=== PATIENT | female | born 1965 | race Caucasian/White ===

== ENCOUNTER 2017-09-17 14:26 | Emergency (ER) | payer OTHER ==
[~2017-09-17] VITALS: Ht 165.1 cm; Wt 80.3 kg
[~2017-09-17 14:26] MED LIST: AMLO10TA PO; BENA10TA25 PO; OMEP40EC1 PO; SYN.05 PO
[2017-09-17 14:59] VITALS: BP 130/71
--- NOTE | 2017-09-17 15:03 | NUR ---
PT AMBULATED TO BED 6.
--- NOTE | 2017-09-17 15:09 | NUR ---
51F BIB FAMILY C/O POSTERIOR HEADACHE, PRESSURE, RADIATES TO TOP OF HEAD, 8/10 X YESTERDAY; PT STATES NO TRAUMA OR INJURY TO SITE AT THIS TIME; PT STATES NO BLURRY VISION OR VISION CHANGES AT THIS TIME; PT AA&OX4, PERRLA, STATES HAS NAUSEA, BUT STATES NO VOMITING OR DIARRHEA AT THIS TIME; ABDOMEN SOFT, NON-TENDER, ACTIVE BOWEL SOUNDS X 4 QUADRANTS; BL LUNG SOUNDS CLEAR, RR EVEN/UNLABORED, SKIN IS WARM/DRY/INTACT AT THIS TIME; STEADY GAIT; PT RESTING IN BED WITH HOB ELEVATED AND IN LOWEST POSITION; POSITIONED FOR COMFORT; ER MD MADE AWARE OF STATUS. WILL CONTINUE TO MONITOR.
[2017-09-17] MEDS: ACETAMINOPHEN 325 MG TAB PO ONE (15:49)
[2017-09-17] MEDS: ONDANSETRON 4 MG ODT PO ONE (15:49)
[2017-09-17 16:40] VITALS: BP 127/73
--- NOTE | 2017-09-17 16:40 | NUR ---
Patient discharged with v/s stable. Written and verbal after care instructions given and explained. Patient alert, oriented and verbalized understanding of instructions. Ambulatory with steady gait. All questions addressed prior to discharge. ID band removed. Patient advised to follow up with PMD. Rx of ZOFRAN ODT given. Patient educated on indication of medication including possible reaction and side effects. Opportunity to ask questions provided and answered.
== END 2017-09-17 16:40 | disposition home or self-care (01) ==
LOC: MED 14:26
DX: R51 Headache (principal); I10 Essential (primary) hypertension; E78.5 Hyperlipidemia, unspecified
CPT/HCPCS: 93005; 99283; S0119

== ENCOUNTER 2018-11-03 23:07 | Emergency (ER) | payer OTHER ==
[~2018-11-03] VITALS: Ht 165.1 cm; Wt 79.4 kg
[2018-11-03 23:12] VITALS: BP 135/77
--- NOTE | 2018-11-03 23:12 | NUR ---
TO BED # 3 AMBULATORY, REPORT GIVEN TO SHAILA ESTRADA
--- NOTE | 2018-11-03 23:15 | NUR ---
ASSUMED CARE OF PT AT THIS TIME. C/O RIGHT EYE REDNESS AND PAIN X 2 DAYS. AAOX4 WITH EVEN AND STEADY GAIT; PATIENT STATES PAIN OF 5/10; VSS; PATIENT POSITIONED FOR COMFORT; HOB ELEVATED; BEDRAILS UP X2; BED DOWN. ER MD MADE AWARE OF PT STATUS. WILL CONTINUE TO MONITOR.
--- NOTE | 2018-11-03 23:16 | NUR ---
PT TAKEN TO BED 4
--- NOTE | 2018-11-03 23:19 | NUR ---
Dr. Pepe evaluating patient at bedside.
[2018-11-03 23:25] VITALS: BP 135/77
--- NOTE | 2018-11-03 23:25 | NUR ---
Patient discharged with v/s stable. Written and verbal after care instructions given and explained. Patient verbalized understanding. Ambulatory with steady gait. All questions addressed prior to discharge. Advised to follow up with PMD.
== END 2018-11-03 23:25 | disposition home or self-care (01) ==
LOC: MED 23:07
DX: H11.31 Conjunctival hemorrhage, right eye (principal); I10 Essential (primary) hypertension; E78.5 Hyperlipidemia, unspecified; E07.9 Disorder of thyroid, unspecified; Z79.899 Other long term (current) drug therapy
CPT/HCPCS: 99282

== ENCOUNTER 2019-06-23 01:13 | Emergency (ER) | payer OTHER ==
[~2019-06-23] VITALS: Ht 165.1 cm; Wt 83.9 kg
[~2019-06-23 01:13] MED LIST changes: -OMEP40EC1 PO; +OMEP40EC24 PO
[2019-06-23 01:15] VITALS: BP 117/83
--- NOTE | 2019-06-23 01:15 | NUR ---
PT AMBULATED TO BED 04
--- NOTE | 2019-06-23 01:20 | NUR ---
Note undone in EDM - 06/23/19 at 0214 by [email or web address] PT CAME TO ER C/O GENERALIZED BODY ACHES. PT STATES "I ATE TACOS ON 06/22/19 AT 0200 AND HAVE NOT FELT GOOD SINCE." PT HAS TEMP OF 101.6 TEMPORAL. PT TOOK IBUPROFEN 800MG, WITHOUT ANY RELIEF. PT C/O OF GENERALIZED BODY ACHES. PAIN LEVEL 8/10 BODY PAIN WITH NAUSEA. PT IS HOT TO TOUCH AND TACHYCARDIC. DENIES COUGH OR RUNNY NOSE. DENIES ANY VOMITING/DIARRHEA. NKA. MED HX: HTN AND HYPOTHYROIDISM. SAFETY MEASURES IN PLACE. ERMD AT BEDSIDE.
--- NOTE | 2019-06-23 01:20 | NUR ---
PT CAME TO ER C/O GENERALIZED BODY ACHES AND FEVER. PT STATES "I ATE TACOS ON 06/22/19 AT 0200 AND HAVE NOT FELT GOOD SINCE." PT HAS TEMP OF 101.6 TEMPORAL. PT TOOK IBUPROFEN 800MG, WITHOUT ANY RELIEF. PAIN LEVEL 8/10, BODY PAIN WITH NAUSEA. PT IS HOT TO TOUCH AND TACHYCARDIC. DENIES COUGH OR RUNNY NOSE. DENIES ANY VOMITING OR DIARRHEA. DENIES BURNING UPON URINATION. NKA. MED HX: HTN AND HYPOTHYROIDISM. SAFETY MEASURES IN PLACE. ERMD AT BEDSIDE.
[2019-06-23] MEDS ORDERED: MORPHINE SULFATE 2 MG/ML SYR IVP ONE (01:25)
[2019-06-23] MEDS ORDERED: NACL 0.9% 1,000 ML IV ONE (01:25)
[2019-06-23] MEDS ORDERED: ACETAMINOPHEN EXTRA STRENGTH 500 MG TAB PO ONE (01:25)
[2019-06-23] MEDS ORDERED: ONDANSETRON 4 MG/2 ML VIAL IVP ONE (01:25)
[2019-06-23 01:47] LABS: BASOPHILS # (AUTO) 0.1 K/uL (0.00-0.22); BASOPHILS % (AUTO) 1.1 % (0.0-2.0); HEMATOCRIT 40.1 % (36-48); HEMOGLOBIN 13.6 g/dL (12.0-16.0); LYMPHOCYTES % (AUTO) 10.2 % (20.5-51.1); MEAN CORPUSCULAR HEMOGLOBIN 31 pg (27-31); MEAN CORPUSCULAR HGB CONC 34 g/dL (33-37); MEAN CORPUSCULAR VOLUME 91.4 fL (80-94); MONOCYTES # (AUTO) 0.6 K/uL (0.8-1.0); MONOCYTES % (AUTO) 6.1 % (1.7-9.3); NEUTROPHILS % (AUTO) 82.6 % (42.2-75.2); PLATELET COUNT (AUTO) 190 K/uL (140-450); RED BLOOD CELL COUNT(AUTO) 4.38 MIL/uL (4.20-5.40); RED CELL DISTRIBUTION WIDTH 13.4 % (11.6-13.7); WHITE BLOOD COUNT (AUTO) 9.7 K/uL (4.8-10.8)
--- NOTE | 2019-06-23 01:50 | NUR ---
XRAY AT BEDSIDE
[2019-06-23 02:02] LABS: ANION GAP 12.4 (8-16); CARBON DIOXIDE 27.4 mmol/L (21-32); CREATININE 0.8 mg/dL (0.6-1.3); POTASSIUM 3.8 mmol/L (3.5-5.1)
[2019-06-23 02:05] LABS: APPEARANCE,URINE CLEAR (CLEAR); BILIRUBIN,URINE NEGATIVE (NEGATIVE); BLOOD, URINE TRACE-I (NEGATIVE); COLOR,URINE YELLOW (YELLOW); LEUKOCYTE ESTERASE ,URINE 1+ (NEGATIVE); NITRITE, URINE NEGATIVE (NEGATIVE); PH,URINE 6.5 (5.0-9.0); UGLUCOSE NEGATIVE (NEGATIVE)
--- NOTE | 2019-06-23 02:10 | NUR ---
PT RESTING IN BED WITH EYES CLOSED. CURRENT TEMPERATURE: 100.3 TEMPORAL. PAIN LEVEL DECREASED TO LEVEL 5/10. ERMD NOTIFIED.
[2019-06-23 02:18] LABS: ALBUMIN 3.7 g/dL (3.4-5.0); TOTAL BILIRUBIN 0.5 mg/dL (0.0-1.0)
[2019-06-23] MEDS ORDERED: CIPROFLOXACIN 250 MG TAB PO ONE (02:35)
[2019-06-23] MEDS ORDERED: CIPROFLOXACIN 250 MG TAB ONE (02:58)
--- NOTE | 2019-06-23 03:00 | NUR ---
Patient discharged with v/s stable. Written and verbal after care instructions given and explained. Educated pt to drink plenty of fluid until urine is clear and take antibiotics as prescribed. Patient alert, oriented and verbalized understanding of instructions. Ambulatory with steady gait. All questions addressed prior to discharge. ID band removed. Patient advised to follow up with PMD. Rx of cipro and ibuprofen was given. Patient educated on indication of medication including possible reaction and side effects. Opportunity to ask questions provided and answered.
[2019-06-23 03:04] VITALS: BP 117/83
== END 2019-06-23 03:00 | disposition home or self-care (01) ==
LOC: MED 01:13
DX: N39.0 Urinary tract infection, site not specified (principal); I10 Essential (primary) hypertension; E07.9 Disorder of thyroid, unspecified; Z79.899 Other long term (current) drug therapy
CPT/HCPCS: 36415; 71045; 80053; 81001; 85025; 87086; 87804; 96374; 96375; 99284; J2270; J2405; J7030; Q0092

== ENCOUNTER 2021-02-16 08:58 | Emergency (ER) | payer OTHER ==
[~2021-02-16] VITALS: Ht 165.1 cm; Wt 77.1 kg
[2021-02-16 09:05] VITALS: BP 141/76
--- NOTE | 2021-02-16 09:08 | NUR ---
AMBULATED TO BED 11
--- NOTE | 2021-02-16 09:12 | NUR ---
Dr. Ansari is evaluating patient at bedside.
--- NOTE | 2021-02-16 09:15 | NUR ---
55 y/o F coming in from work with c/c hyperglycemia symptoms. Patient states she has been experiencing urinary frequency throughout the night, dry mouth, excessive thrist, and headache for the past 1.5 weeks. Patient states she has no history of DM and denies any medications prior to arrival. Patient reports 7/10, aching/constant pain to forehead and back of head. Patient reports no history of diabetes and states blood glucose check prior to arrival @ 400. AccuChek performed 412. Patient denies SOB, chest pain, abdominal pain, back pain, blurry vision, hearing loss, other urinary symptoms. Cardiac montior in place. Lung sounds CTA. VSS. Bed locked in lowest position, side rails x 1, call light in reach. PMH: HTN, hypothyroidism Meds: Amlodipine 10mg, Levothyroxine 75mg NKA Sx: Left thyroidectomy x 10 years ago Addendum: 02/16/21 at 0945 by MARBELLA Amendment undone in EDM - 02/16/21 at 0954 by MARBELLA 55 y/o F coming in from work with c/c hyperglycemia symptoms. Patient states she has been experiencing urinary frequency throughout the night, dry mouth, excessive thrist, and headache for the past 1.5 weeks. Patient states she has no history of DM and denies any medications prior to arrival. Patient reports 7/10, aching/constant pain to forehead and back of head. Patient reports no history of diabetes and states blood glucose check prior to arrival @ 400. Pt also states she was seen by a doctor and prescribed medications for "scabies/itch" from work. AccuChek performed 412. Patient denies SOB, chest pain, abdominal pain, back pain, blurry vision, hearing loss, other urinary symptoms. Cardiac montior in place. Lung sounds CTA. VSS. Bed locked in lowest position, side rails x 1, call light in reach. PMH: HTN, hypothyroidism, (newly prescribed): Prednisone, Permethrin cream, hydroxyzine Meds: Amlodipine 10mg, Levothyroxine 75mg NKA Sx: Left thyroidectomy x 10 years ago Addendum: 02/16/21 at 0954 by [email or web address] 55 y/o F coming in from work with c/c hyperglycemia symptoms. Patient states she has been experiencing polyuria, nocturia, polydipsia, dry mouth, and headache for the past 1.5 weeks. Patient states she has no history of DM states blood glucose check prior to arrival @ 400. Patient reports 04/30, aching/constant pain to forehead and back of head. Pt also states she was seen by a doctor and prescribed medications for "scabies/itch" from work. Denies taking any medication outside of prescribed meds prior to arrival. Patient denies SOB, chest pain, abdominal pain, back pain, blurry vision, hearing loss, other urinary symptoms. Cardiac montior in place. AccuChek performed 412. Lung sounds CTA. VSS. Bed locked in lowest position, side rails x 1, call light in reach. PMH: HTN, hypothyroidism, (newly prescribed): Prednisone, Permethrin cream, hydroxyzine Meds: Amlodipine 10mg, Levothyroxine 75mg NKA Sx: Left thyroidectomy x 10 years ago
--- NOTE | 2021-02-16 09:25 | NUR ---
Blood sample collected, walked to lab and handed to CPT. Giovani
[2021-02-16] MEDS ORDERED: NACL 0.9% 1,000 ML IV ONE ×2 (09:30→10:25)
--- NOTE | 2021-02-16 09:34 | NUR ---
Patient ambulated to restroom for urine sample; steady/even gait.
--- NOTE | 2021-02-16 09:35 | NUR ---
UA collected, walked to lab and handed to CPT. Giovani
[2021-02-16 09:43] LABS: HEMATOCRIT 46.1 % (36-48); HEMOGLOBIN 15.7 g/dL (12.0-16.0); MEAN CORPUSCULAR HEMOGLOBIN 32 pg (27-31); MEAN CORPUSCULAR HGB CONC 34 g/dL (33-37); MEAN CORPUSCULAR VOLUME 93.5 fL (80-94); PLATELET COUNT (AUTO) 188 K/uL (140-450); RED BLOOD CELL COUNT(AUTO) 4.93 MIL/uL (4.20-5.40); RED CELL DISTRIBUTION WIDTH 12.6 % (11.6-13.7); WHITE BLOOD COUNT (AUTO) 9.2 K/uL (4.8-10.8)
--- NOTE | 2021-02-16 09:58 | NUR ---
Patient resting in position of comfort with both eyes closed. Lights dimmed, blanket provided. environmental monitoring specialist remains in place; IVF continued. Respirations even/unlabored. Bed locked in lowest position, side rails x 1, call light in reach.
[2021-02-16 10:17] LABS: LYMPHOCYTES % (MANUAL) 3 % (20-46); MONOCYTES % (MANUAL) 1 % (5-12)
[2021-02-16] MEDS ORDERED: KETOROLAC 15 MG/ML VIAL IVP ONE (10:20)
[2021-02-16 10:37] LABS: APPEARANCE,URINE HAZY (CLEAR); BILIRUBIN,URINE NEGATIVE (NEGATIVE); BLOOD, URINE NEGATIVE (NEGATIVE); COLOR,URINE YELLOW (YELLOW); LEUKOCYTE ESTERASE ,URINE NEGATIVE (NEGATIVE); NITRITE, URINE NEGATIVE (NEGATIVE); UGLUCOSE 3+ (NEGATIVE)
--- NOTE | 2021-02-16 10:40 | NUR ---
Patient states positive relief after Toradol 15mg IVP. Rates pain 5/10; denies any other medical complaint at this time. Respirations even/unlabored. Bed locked in lowest position, side rails x 1, call light in reach.
--- NOTE | 2021-02-16 11:03 | NUR ---
Patient states dry mouth; cup of iced water provided per pt request. All pt needs met at this time. ekg monitor remains in place. Respirations even/unlabored. Bed locked in lowest position, side rails x 1, call light in reach.
[2021-02-16 11:05] LABS: RBC,URINE 0-5 /HPF (0-5); WBC,URINE 0-5 /HPF (0-5)
[2021-02-16 11:10] LABS: ALBUMIN 4.2 g/dL (3.4-5.0); ANION GAP 20.6 (8-16); CARBON DIOXIDE 22.1 mmol/L (21-32); CREATININE 0.8 mg/dL (0.6-1.3); POTASSIUM 4.7 mmol/L (3.5-5.1); TOTAL BILIRUBIN 0.6 mg/dL (0.0-1.0)
[2021-02-16] MEDS ORDERED: [UNRECOGNIZED DRUG - CODE] PO (11:21)
[2021-02-16 11:42] VITALS: BP 114/67
--- NOTE | 2021-02-16 11:42 | NUR ---
Patient discharged with v/s stable. Written and verbal after care instructions given and explained. Patient alert, oriented and verbalized understanding of instructions. Ambulatory with steady gait. All questions addressed prior to discharge. ID band removed. Patient advised to follow up with PMD. Rx of Metformin Hcl given. Patient educated on indication of medication including possible reaction and side effects. Opportunity to ask questions provided and answered.
== END 2021-02-16 11:42 | disposition home or self-care (01) ==
LOC: MED 08:58
DX: R73.9 Hyperglycemia, unspecified (principal); I10 Essential (primary) hypertension; E07.9 Disorder of thyroid, unspecified; Z79.899 Other long term (current) drug therapy; Z98.890 Other specified postprocedural states
CPT/HCPCS: 36415; 80053; 81001; 83690; 85025; 96361; 96374; 99283; J1885; J7030

== ENCOUNTER 2021-02-19 00:25 | Emergency (ER) | payer OTHER ==
[~2021-02-19] VITALS: Ht 165.1 cm; Wt 77.6 kg
[~2021-02-19 00:25] MED LIST changes: +[UNRECOGNIZED DRUG - CODE] PO
[2021-02-19 00:35] VITALS: BP 129/75
[2021-02-19] MEDS ORDERED: NACL 0.9% 1,000 ML IV ONE (01:15)
[2021-02-19] MEDS ORDERED: INSULIN REGULAR, HUMAN 100 UNIT/ML VIAL IV ONE (01:20)
[2021-02-19 01:39] LABS: BASOPHILS # (AUTO) 0.1 K/uL (0.00-0.22); EOSINOPHILS # (AUTO) 0.1 K/uL (0-0.4); EOSINOPHILS % (AUTO) 1.6 % (0.0-4.0); HEMATOCRIT 41.6 % (36-48); HEMOGLOBIN 13.8 g/dL (12.0-16.0); LYMPHOCYTES # (AUTO) 2.1 K/uL (2.5-16.5); LYMPHOCYTES % (AUTO) 36.7 % (20.5-51.1); MEAN CORPUSCULAR HEMOGLOBIN 32 pg (27-31); MEAN CORPUSCULAR HGB CONC 33 g/dL (33-37); MEAN CORPUSCULAR VOLUME 94.9 fL (80-94); MONOCYTES # (AUTO) 0.4 K/uL (0.8-1.0); NEUTROPHILS # (AUTO) 3.1 K/uL (1.8-7.7); NEUTROPHILS % (AUTO) 53.7 % (42.2-75.2); PLATELET COUNT (AUTO) 162 K/uL (140-450); RED BLOOD CELL COUNT(AUTO) 4.38 MIL/uL (4.20-5.40); RED CELL DISTRIBUTION WIDTH 12.6 % (11.6-13.7); WHITE BLOOD COUNT (AUTO) 5.7 K/uL (4.8-10.8)
[2021-02-19 01:53] LABS: ALBUMIN 3.2 g/dL (3.4-5.0); ANION GAP 12.7 (8-16); ASPARTATE AMINOTRANSFERASE 123 U/L (15-37); CARBON DIOXIDE 23.6 mmol/L (21-32); CHLORIDE 101 mmol/L (98-107); CREATININE 0.8 mg/dL (0.6-1.3); GFR ARICAN-AMERICAN 95 mL/min (>90); POTASSIUM 4.3 mmol/L (3.5-5.1); SODIUM SERUM 133 mmol/L (136-145); TOTAL BILIRUBIN 0.3 mg/dL (0.0-1.0); UREA NITROGEN, BLOOD 18 mg/dL (7-18)
[2021-02-19 01:57] LABS: ACETONE, SERUM SMALL (NEGATIVE); GLUCOSE 426 mg/dL (74-106)
[2021-02-19] MEDS ORDERED: METF1000 PO (02:35)
[2021-02-19] MEDS ORDERED: ELIMC TP (02:35)
[2021-02-19 02:46] VITALS: BP 132/79
--- NOTE | 2021-02-19 02:46 | NUR ---
d/c with VSS. d/c education given. opprotunity to ask questions given and answered. rx of elimite and metformin given.
== END 2021-02-19 02:46 | disposition home or self-care (01) ==
LOC: MED 00:25
DX: E11.65 Type 2 diabetes mellitus with hyperglycemia (principal); B86 Scabies
CPT/HCPCS: 36415; 80053; 82009; 85025; 96361; 96374; 99283; J1815; J7030

== ENCOUNTER 2023-01-07 18:24 | Emergency (ER) | payer OTHER ==
[~2023-01-07] VITALS: Ht 165.1 cm; Wt 79.8 kg
[~2023-01-07 18:24] MED LIST changes: +ELIMC TP; +METF-1274 PO
[2023-01-07 18:32] VITALS: BP 138/79
--- NOTE | 2023-01-07 19:07 | NUR ---
PA Paredes examining patient.
[2023-01-07] MEDS ORDERED: KETOROLAC 30 MG/ML VIAL IM ONE (19:10)
[2023-01-07] MEDS ORDERED: NAPR-1704 PO (19:36)
[2023-01-07] MEDS ORDERED: LID5T TP (19:36)
[2023-01-07] MEDS ORDERED: CYCL-711 PO (20:02)
[2023-01-07 20:19] VITALS: BP 124/78
--- NOTE | 2023-01-07 20:19 | NUR ---
Patient discharged with v/s stable. Written and verbal after care instructions given and explained. Patient alert, oriented and verbalized understanding of instructions. Ambulatory with steady gait. All questions addressed prior to discharge. ID band removed. Patient advised to follow up with PMD. Rx of Lidoderm 5% Patch, Naproxen and Flexeril given. Patient educated on indication of medication including possible reaction and side effects. Opportunity to ask questions provided and answered.
== END 2023-01-07 20:19 | disposition home or self-care (01) ==
LOC: MED 18:24
DX: S16.1XXA Strain of muscle, fascia and tendon at neck level, initial encounter (principal); M54.10 Radiculopathy, site unspecified; I10 Essential (primary) hypertension; E03.9 Hypothyroidism, unspecified; E11.9 Type 2 diabetes mellitus without complications; E78.5 Hyperlipidemia, unspecified; Z79.899 Other long term (current) drug therapy; Z79.1 Long term (current) use of non-steroidal anti-inflammatories (NSAID); X58.XXXA Exposure to other specified factors, initial encounter; Y92.89 Other specified places as the place of occurrence of the external cause; Y93.89 Activity, other specified; Y99.0 Civilian activity done for income or pay
CPT/HCPCS: 72050; 73030; 96372; 99284; J1885; Q0092

== ENCOUNTER 2023-10-26 19:24 | Emergency (ER) | payer OTHER ==
[~2023-10-26] VITALS: Ht 165.1 cm; Wt 87.5 kg
[~2023-10-26 19:24] MED LIST changes: +CYCL-711 PO; +LID5T TP; +NAPR-1704 PO
[2023-10-26 20:05] VITALS: BP 148/82; PULSE 68; RESP 16; TEMP 97.1; O2SAT 99
[2023-10-26] MEDS ORDERED: KEN.1C80 TP (21:03)
[2023-10-26] MEDS ORDERED: LORA-1047 PO (21:33)
[2023-10-26 21:45] VITALS: BP 135/80; PULSE 70; RESP 16; TEMP 97.1; O2SAT 99
== END 2023-10-26 21:45 | disposition home or self-care (01) ==
LOC: MED 19:24
DX: R21 Rash and other nonspecific skin eruption (principal); E11.9 Type 2 diabetes mellitus without complications; I10 Essential (primary) hypertension; Z79.4 Long term (current) use of insulin; Z79.899 Other long term (current) drug therapy
CPT/HCPCS: 99283

== ENCOUNTER 2023-11-07 10:49 | Day surgery (SDC) | payer OTHER ==
[~2023-11-07] VITALS: Ht 165.1 cm; Wt 83.9 kg
[~2023-11-07 10:49] MED LIST changes: +KEN.1C80 TP; +LORA-1047 PO
[2023-11-07] MEDS ORDERED: fentaNYL citrate 0.05 MG/ML VIAL ONE (12:51)
[2023-11-07] MEDS ORDERED: LIDOCAINE 2% 100 MG/5 ML UJET TP ONE (12:51)
[2023-11-07] MEDS ORDERED: fentaNYL citrate 0.05 MG/ML VIAL IVP ONE (15:20)
== END 2023-11-07 15:24 | disposition home or self-care (01) ==
LOC: MDS 10:49 → MMU 11:55 → MDS 15:24
PROVIDERS: ATTEND Internal Medicine Gastroenterology
DX: Z12.11 Encounter for screening for malignant neoplasm of colon (principal); K57.30 Diverticulosis of large intestine without perforation or abscess without bleeding; I10 Essential (primary) hypertension; E11.9 Type 2 diabetes mellitus without complications; E05.90 Thyrotoxicosis, unspecified without thyrotoxic crisis or storm; Z79.84 Long term (current) use of oral hypoglycemic drugs; Z79.899 Other long term (current) drug therapy
CPT/HCPCS: 45378; 82948; J3010